=== PATIENT | female | born 1940 | race Caucasian/White ===

== ENCOUNTER → 2016-12-29 | Outpatient (CLI) | payer OTHER, BC ==
--- NOTE | 2016-12-29 13:04 | DX ---
Chest, Two Views at 1222 hours History: Cough, fever, right lower lobe Rales, J 18.0 Comparison: None. Findings: Cardiac silhouette is within normal range. Bilateral peribronchial thickening. Slightly tor tuous thoracic aorta. No pneumonia, congestive heart failure, pleural effusion, or pneumothorax. Impression: 1. Bronchitis. 2. No definite focal pneumonia. 3. Consider screening CT chest there is continued clinical concern.
== END ==
LOC: BMCIMAGING 12:08
PROVIDERS: ATTEND Internal Medicine
DX: J40 Bronchitis, not specified as acute or chronic (principal); E03.9 Hypothyroidism, unspecified; M85.80 Other specified disorders of bone density and structure, unspecified site; Z79.899 Other long term (current) drug therapy

== ENCOUNTER → 2017-02-21 | Outpatient (CLI) | payer OTHER, BC | LOC: BMCIMAGING 09:57 | PROVIDERS: ATTEND Internal Medicine | DX: Z13.820 Encounter for screening for osteoporosis (principal); M85.80 Other specified disorders of bone density and structure, unspecified site ==

== ENCOUNTER 2018-06-06 19:08 | Emergency (ER) | payer OTHER, BC ==
[2018-06-06 20:46] VITALS: BP 130/85
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
== END 2018-06-06 21:00 | disposition home or self-care (01) ==
DX: S30.0XXA Contusion of lower back and pelvis, initial encounter (principal); V49.50XA Passenger injured in collision with unspecified motor vehicles in traffic accident, initial encounter; Y92.410 Unspecified street and highway as the place of occurrence of the external cause; Y99.8 Other external cause status; Y93.89 Activity, other specified